=== PATIENT | male | born 1970 | race African-American/Black ===

== ENCOUNTER 2023-03-04 03:30 | Emergency (ER) | payer MEDICAID ==
[~2023-03-04] VITALS: Ht 188 cm; Wt 81.6 kg
--- NOTE | 2023-03-04 03:35 | NUR ---
pt to lobby via w/c
[2023-03-04 03:36] VITALS: BP 151/106
[2023-03-04 04:09] VITALS: BP 151/106
--- NOTE | 2023-03-04 04:09 | NUR ---
Patient discharged with v/s stable. Written and verbal after care instructions given and explained. Patient verbalized understanding. Ambulatory with steady gait. All questions addressed prior to discharge. Advised to follow up with PMD.
--- NOTE | 2023-03-04 04:09 | NUR ---
Pt seen and evaluated by GOLDIE
== END 2023-03-04 04:09 | disposition home or self-care (01) ==
LOC: MED 03:30
DX: L90.5 Scar conditions and fibrosis of skin (principal); Z59.00 Homelessness unspecified
CPT/HCPCS: 99283

== ENCOUNTER 2023-03-04 08:13 | Emergency (ER) | payer MEDICAID ==
[~2023-03-04] VITALS: Ht 188 cm; Wt 117.9 kg
[2023-03-04 08:24] VITALS: BP 133/87
--- NOTE | 2023-03-04 08:27 | NUR ---
PATIENT BIB [employer]. PATIENT EXAMINED BY DR. FARRAR. PATIENT MEDICALLY CLEARED AND RELEASED IN CUSTODY IN STABLE CONDITION. ORIGINAL PRE-BOOK FORM GIVEN TO OFFICER TO #[phone].
== END 2023-03-04 08:27 ==
LOC: MED 08:13
DX: S80.211A Abrasion, right knee, initial encounter (principal); Z02.89 Encounter for other administrative examinations; Y04.0XXA Assault by unarmed brawl or fight, initial encounter; Y93.89 Activity, other specified; Y92.238 Other place in hospital as the place of occurrence of the external cause; Y99.8 Other external cause status
CPT/HCPCS: 99283